=== PATIENT | male | born 1965 | race African-American/Black ===

== ENCOUNTER 2016-10-18 03:23 | Emergency (ER) | payer OTHER | END 2016-10-18 04:14 | disposition home or self-care (01) | LOC: ED 03:23 | DX: S16.1XXA Strain of muscle, fascia and tendon at neck level, initial encounter (principal); S49.81XA Other specified injuries of right shoulder and upper arm, initial encounter; V64.5XXA Driver of heavy transport vehicle injured in collision with heavy transport vehicle or bus in traffic accident, initial encounter ==